=== PATIENT | male | born 2000 | race Caucasian/White ===

== ENCOUNTER 2022-01-26 10:53 | Emergency (ER) | payer OTHER, SELFPAY ==
[2022-01-26 11:11] VITALS: BP 139/82; PULSE 96; RESP 18; TEMP 37; O2SAT 99; BMI 31.1
[2022-01-26] MEDS: ONDANSETRON 4 MG ODT PO (11:19)
--- NOTE | 2022-01-26 13:03 | DI.US.S_ITS ---
PROCEDURE: US ABDOMEN LIMITED INDICATIONS: RUQ PAIN TECHNIQUE: Real-time scanning was performed of the abdominal and retroperitoneal organs, with image documentation. COMPARISON: None. FINDINGS: Liver: Liver is normal in size and is normal and homogeneous in echotexture. Gallbladder: There is no gallstone. No gallbladder wall thickening or pericholecystic fluid. No sonographic Cramer sign. Biliary ducts: Intrahepatic bile ducts are non-dilated. Extrahepatic bile duct caliber measures 4.4 mm. Normal is 6-7 mm or less in diameter, or 10 mm or less post-cholecystectomy. Pancreas: Pancreas is not well visualized due to overlying bowel gas. IMPRESSION: Unremarkable ultrasound examination of right upper quadrant abdomen. Dictated by: Kee Haynes M.D. on 01/26/2022 at 15:22 Approved by: Kee Haynes M.D. on 01/26/2022 at 15:23
--- NOTE | 2022-01-26 13:04 | ED.ABDPAIN ---
HPI - Abdominal Pain <Brayan Astorga PA-C - Last Filed: 01/26/22 20:02> General Chief Complaint: Abdominal Pain Stated Complaint: Vomiting with abdominal pain Time Seen by Provider: 01/26/22 12:52 History of Present Illness HPI narrative: Patient is a 21-year-old male presenting to the emergency department today for evaluation of abdominal pain and vomiting. Patient states he awoke this morning with abdominal pain and experienced 2 episodes of nonbloody nonbilious emesis this morning. He complains that he was feeling asymptomatic yesterday and denies any new foods or new medications recently. Explains he is also experiencing intermittent episodes of chills and nausea today. No fever, chest pain, cough, shortness of breath, diarrhea, constipation, dysuria, hematuria, hematemesis, hematochezia, sore throat, earache, rash, or any other concerning symptoms. Patient reports a prior history of pyloric stenosis for which she received surgery when he was an . No other surgeries reported. No further concerns or worse at this time. Related Data Previous Rx's Medication Instructions Recorded ondansetron 4 mg disintegrating 4 mg PO Q6H PRN #20 tab 01/26/22 tablet Allergies Allergy/AdvReac Type Severity Reaction Status Date / Time No Known Drug Allergies Allergy Verified 01/26/22 11:16 Review of Systems <Brayan Astorga PA-C - Last Filed: 01/26/22 20:02> Constitutional Constitutional: Reports chills, Denies fatigue, Denies fever(s), Denies frequent falls, Denies lethargy and Denies weakness Eyes Eyes: Denies loss of vision ENT Ears, Nose, Mouth, and Throat: Denies dizziness and Denies neck pain Cardiovascular Cardiovascular: Denies chest pain, Denies irregular heart rhythm, Denies lightheadedness, Denies palpitations, Denies dyspnea, Denies dyspnea on exertion and Denies orthopnea Respiratory Respiratory: Denies cough, Denies dyspnea, Denies dyspnea on exertion and Denies wheezing Gastrointestinal Gastrointestinal: Reports abdominal pain, Denies change in bowel habits, Denies diarrhea, Reports nausea and Reports vomiting Genitourinary Genitourinary: Denies hematuria, Denies flank pain, Denies urinary incontinence and Denies urinary urgency Musculoskeletal Musculoskeletal: Denies back pain, Denies muscle weakness, Denies neck pain, Denies numbness and Denies tingling Integumentary/Breasts Skin/Breast: Denies pruritus, Denies erythema, Denies rash and Denies wounds Neurologic Neurologic: Denies behavioral changes, Denies confusion, Denies dizziness, Denies frequent falls, Denies loss of vision, Denies numbness, Denies tingling and Denies weakness Psychiatric Psychiatric: Denies behavioral changes and Denies confusion Endocrine Endocrine: Denies fatigue and Denies palpitations Allergic/Immunologic Allergic/Immunologic: Denies wheezing Patient History <Brayan Astorga PA-C - Last Filed: 01/26/22 20:02> Social History Smoking Status: Current some day smoker Smoking Status: Current some day smoker tobacco type: vaping alcohol intake frequency: holidays/special occasions only Substance Use Type: does not use Exam <Brayan Astorga PA-C - Last Filed: 01/26/22 20:02> Narrative Exam Narrative: GENERAL: 21 year old patient appears stated age. Well-developed patient, in no acute distress. HEAD: Atraumatic. Normocephalic. EYES: Pupils equal round and reactive. Extraocular motions intact. No scleral icterus. No injection or drainage. ENT: Nose without bleeding, purulent drainage. Throat without erythema, tonsillar hypertrophy or exudate. Airway patent. NECK: Trachea midline. Non tender CARDIOVASCULAR: Regular rate and rhythm without murmurs, gallops, or rubs. RESPIRATORY: Clear to auscultation. Breath sounds equal bilaterally. No wheezes, rales, or rhonchi. GASTROINTESTINAL: Abdomen soft, nondistended. Tenderness to palpation appreciated in the right upper quadrant of the abdomen with no significant tenderness appreciated in the remaining quadrants. No masses are surgical scars appreciated. Negative Cramer sign. Negative psoas sign, negative obturator's sign. EXTREMITIES: No edema or joint tenderness. BACK: Nontender without deformity or crepitance. No flank tenderness. NEURO: AOx3. SKIN: No rash or erythema of visible areas Initial Vital Signs Initial Vital Signs: Vital Signs Temperature 98.6 F 01/26/22 11:11 Pulse Rate 96 H 01/26/22 11:11 Respiratory Rate 18 01/26/22 11:11 Blood Pressure 139/82 01/26/22 11:11 Pulse Oximetry 99 01/26/22 11:11 Course <Brayan Astorga PA-C - Last Filed: 01/26/22 20:02> Course Course Narrative: Zofran and IV normal saline administered. CBC, CMP, lipase, and right upper quadrant abdominal ultrasound ordered. Patient has not had further episodes of emesis following administration of Zofran. He states his pain is not worsening. On re-evaluation patient states he is feeling comfortable with being discharged. Orders Ordered: Discontinued Medications Sodium Chloride (Normal Saline 0.9%) 1,000 mls @ 1,000 mls/hr IV BOLUS ONE Stop: 01/26/22 14:07 Last Infusion: 01/26/22 16:02 Dose: 0 mls/hr Documented by: Admin: 01/26/22 14:08 Dose: 1,000 mls/hr Documented by: ROSALVA Ondansetron HCl (Ondansetron 4 Mg Odt) 4 mg PO NOW ONE Stop: 01/26/22 11:18 Last Admin: 01/26/22 11:19 Dose: 4 mg Documented by: ALE Ondansetron HCl (Ondansetron 4 Mg/2 Ml Inj) 4 mg IV NOW ONE Stop: 01/26/22 15:01 Last Admin: 01/26/22 15:51 Dose: 4 mg Documented by: OSCAR Vital Signs Vital signs: Vital Signs - 8 hr 01/26/22 14:11 01/26/22 14:30 01/26/22 15:00 Pulse Rate 81 83 82 Blood Pressure 139/78 143/80 H 128/73 Pulse Oximetry 98 100 99 01/26/22 15:30 Pulse Rate 88 Blood Pressure 133/73 Pulse Oximetry 99 MDM - Abdominal Pain <Brayan Astorga PA-C - Last Filed: 01/26/22 20:02> Lab Data Result diagrams: 01/26/22 13:15 01/26/22 13:15 Labs: Lab Results 01/26/22 01/26/22 Range/Units 13:15 13:15 WBC 9.2 (4.5-11.0) X10^3/uL RBC 4.82 (4.5-5.9) X10^6/uL Hgb 14.8 (13.5-17.5) g/dL Hct 43.6 (41-53) % MCV 90.3 (80-100) fL MCH 30.8 (26-34) PG MCHC 34.1 (30-36) % RDW 13.5 (11.6-14.8) % Plt Count 244 (150-400) X10^3/uL Neut % (Auto) 92.9 H (50-75) % Lymph % (Auto) 1.8 L (25-40) % Pickett % (Auto) 4.5 (3-14) % Eos % (Auto) 0.6 L (2-4) % Baso % (Auto) 0.2 (0-2) % Neut # (Auto) 8600 H (6936-2398) /uL Lymph # (Auto) 200 L (2813-3166) /uL Pickett # (Auto) 400 (0-900) /uL Eos # (Auto) 100 (0-450) /uL Baso # (Auto) 0 (0-100) /uL Sodium 141 (137-145) mmol/L Potassium 4.2 (3.4-5.1) mmol/L Chloride 105 (98-107) mmol/L Carbon Dioxide 29 (22-32) mmol/L BUN 17 (9-20) mg/dL Creatinine 0.95 (0.66-1.25) mg/dL Estimated GFR > 60.0 (>60) mL/min BUN/Creatinine Ratio 17.9 (6-22) Glucose 96 (70-100) mg/dL Calcium 9.0 (8.4-10.2) mg/dL Total Bilirubin 1.0 (0.2-1.3) mg/dL AST 34 (17-59) IU/L ALT 40 (<50) IU/L Alkaline Phosphatase 79 (38-126) U/L Total Protein 8.3 H (6.3-8.2) g/dL Albumin 5.0 (3.5-5.0) g/dL Globulin 3.3 (1.7-4.1) g/dL Albumin/Globulin Ratio 1.5 (1.0-2.8) Lipase 41 (23-300) U/L Imaging Data US - abdomen: Radiologist's Impression: PROCEDURE:? US ABDOMEN LIMITED ? INDICATIONS:? RUQ PAIN ? TECHNIQUE:? Real-time scanning was performed of the abdominal and retroperitoneal organs, with image documentation.? ? COMPARISON:? None. ? FINDINGS:? ? Liver:? Liver is normal in size and is normal and homogeneous in echotexture. ? Gallbladder:? There is no gallstone.? No gallbladder wall thickening or pericholecystic fluid.? No sonographic Cramer sign. ? Biliary ducts:? Intrahepatic bile ducts are non-dilated.? Extrahepatic bile duct caliber measures 4.4 mm.? Normal is 6-7 mm or less in diameter, or 10 mm or less post-cholecystectomy.? ? Pancreas:? Pancreas is not well visualized due to overlying bowel gas. ? IMPRESSION:? Unremarkable ultrasound examination of right upper quadrant abdomen.? ? ? Dictated by: Kee Haynes M.D. on 01/26/2022 at 15:22 ? ? Approved by: Kee Haynes M.D. on 01/26/2022 at 15:23? MDM Narrative Medical decision making narrative: Differential diagnosis to consider but not limited to cholecystitis versus cholelithiasis versus choledocholithiasis versus acute cholangitis versus pancreatitis versus appendicitis versus gastroenteritis versus diverticulitis. Discussed results of abdominal ultrasound the patient and informed him that no acute abnormality was identified. Informed the patient I would be prescribing him a short course of medications to help alleviate his nausea vomiting. He agreed to plan and states that at this time he is comfortable being discharged home. I urged the patient to return to the emergency department if he experiences pain in the right lower quadrant of the abdomen, fever, persistent vomiting, or any other concerning symptoms. Patient expresses understanding agrees to plan. Strict return precautions were discussed with the patient prior to discharge. Discharge Plan Departure Patient Disposition: Home Clinical Impression: Abdominal pain, Nausea & vomiting Instructions: DI for Abdominal Pain-Adult Activity Restrictions/Additional Instructions: *You have been diagnosed with abdominal pain, nausea and vomiting *What to do: *Please continue to take your regular medications as directed. [X] New medication prescriptions sent to your pharmacy: [facility] [place] [facility] [ ] New medication written as a paper prescription [ ] No new medications given You were evaluated in the emergency department today for abdominal pain, nausea, and vomiting. Lab studies and ultrasound imaging obtained in the emergency department today returned reassuring with no signs of acute abnormality. I prescribed you a course of medication (Zofran) to help alleviate your nausea and vomiting. This prescription has been sent to [facility] in [place]. I recommend you follow-up with the primary care provider within the next 2-3 days for further evaluation and and management of your symptoms. Please do not hesitate to return to the emergency department if you experience fever, pain in the right lower quadrant of your abdomen, persistent vomiting, vomiting blood, or any other concerning symptoms. *Please follow up with your primary care provider in 2-3 days, call for an appointment. Let them know you were seen in the Emergency Department and that we ask that you be seen in follow up. We will electronically transmit a record of today's note if your PCP is in our system *If you Do not have a primary care provider please contact the [facility] Resource line at [phone]. They will ask some questions about your medical history and help get you set up with a doctor in the community. *Return to Emergency Department if you should have any new, worsening or concerning symptoms, such as fever greater than 101 F, shaking chills, worsening pain, persistent vomiting or other bothersome symptoms. Prescriptions: New ondansetron 4 mg tablet,disintegrating 4 mg PO Q6H PRN (Reason: nausea and vomiting) Qty: 20 0RF Referrals: Jese Gandhi MD [Primary Care Provider] -
[2022-01-26 13:29] LABS: Add Manual Diff / Slide Review NO; Basophils Absolute Auto 0 /uL (0-100); Basophils Percent Auto 0.2 % (0-2); Eosinophils Absolute Auto 100 /uL (0-450); Eosinophils Percent Auto 0.6 % (2-4); Hematocrit 43.6 % (41-53); Hemoglobin 14.8 g/dL (13.5-17.5); Lymphocytes Absolute Auto 200 /uL (1100-4500); Lymphocytes Percent Auto 1.8 % (25-40); Mean Corpuscular HGB Conc 34.1 % (30-36); Mean Corpuscular Hemoglobin 30.8 PG (26-34); Mean Corpuscular Volume 90.3 fL (80-100); Monocytes Absolute Auto 400 /uL (0-900); Monocytes Percent Auto 4.5 % (3-14); Neutrophils Absolute Auto 8600 /uL (1500-7000); Neutrophils Percent Auto 92.9 % (50-75); Platelet Count 244 X10^3/uL (150-400); Red Blood Cell Count 4.82 X10^6/uL (4.5-5.9); Red Cell Distribution Width 13.5 % (11.6-14.8); White Blood Cell Count 9.2 X10^3/uL (4.5-11.0)
[2022-01-26 13:39] LABS: Alanine Aminotransferase 40 IU/L (<50); Albumin Globulin Ratio 1.5 (1.0-2.8); Alkaline Phosphatase 79 U/L (38-126); Aspartate Aminotransferase 34 IU/L (17-59); BUN Creatinine Ratio 17.9 (6-22); Blood Urea Nitrogen 17 mg/dL (9-20); Carbon Dioxide 29 mmol/L (22-32); Chloride 105 mmol/L (98-107); Estimated Glomerular Filt Rate > 60.0 mL/min (>60); Globulin 3.3 g/dL (1.7-4.1); Glucose 96 mg/dL (70-100); HEMOLYSIS < 15 (0-50); Lipase 41 U/L (23-300); Potassium 4.2 mmol/L (3.4-5.1); Sodium 141 mmol/L (137-145); Total Protein 8.3 g/dL (6.3-8.2)
[2022-01-26] MEDS: SODIUM CHLORIDE 0.9% 1,000 ML 1000 ML IV (14:08)
[2022-01-26 14:11] VITALS: BP 139/78; PULSE 81; O2SAT 98
[2022-01-26 14:30] VITALS: BP 143/80; PULSE 83; O2SAT 100
[2022-01-26 15:00] VITALS: BP 128/73; PULSE 82; O2SAT 99
[2022-01-26 15:30] VITALS: BP 133/73; PULSE 88; O2SAT 99
[2022-01-26] MEDS: ONDANSETRON 4 MG/2 ML INJ IV (15:51)
== END 2022-01-26 16:18 | disposition home or self-care (01) ==
PROVIDERS: Emergency Provider Physician Assistant; PCP Family Medicine
DX: R10.11 Right upper quadrant pain (principal); R11.2 Nausea with vomiting, unspecified; F17.290 Nicotine dependence, other tobacco product, uncomplicated
CPT/HCPCS: 36415; 76705; 80053; 83690; 85025; 96361; 96374; 99284; J2405